=== PATIENT | male | born 1975 | race Caucasian/White ===

== ENCOUNTER → 2016-12-01 | Outpatient (REF) ==
--- NOTE | 2016-12-01 13:42 | REP ---
LEFT SHOULDER: Three views of the left shoulder are performed. There is no evidence of acute fracture, dislocation or intrinsic bone disease. IMPRESSION: Negative left shoulder series. Signed by Butch Nicholson MD 12/01/2016 02:26 P
--- NOTE | 2016-12-01 13:44 | REP ---
BILATERAL CLAVICLE SERIES: Two views of bilateral clavicles performed. Left clavicle demonstrates no fracture, dislocation or intrinsic bone disease. Acromioclavicular joint appears normal. On the right, there appears to have been resection of the distal end of the clavicle. Acromioclavicular joint is well aligned with no acute fracture or dislocation. IMPRESSION: No acute fracture or dislocation. There appears to be prior resection of the distal end of the right clavicle. Signed by Butch Nicholson MD 12/01/2016 02:26 P
== END ==
LOC: M RAD 12:12
PROVIDERS: ATTEND Family Medicine
DX: M25.512 Pain in left shoulder (principal)

== ENCOUNTER 2017-11-27 23:58 | Day surgery (SDC) | payer MEDICARE, OTHER ==
[2017-11-28] MEDS: NS 1,000 ML IV ×3 (00:44→14:20)
[2017-11-28 01:28] LABS: BASO % 0.2 % (0.0-1.0); EOS % 0.2 % (0.0-3.0); HEMOGLOBIN 14.6 g/dl (13.5-17.5); IMMATURE GRANULOCYTE % 0.4 % (0-3.0); LYMPH # 1.4 10^3/uL (1.5-4.5); LYMPH % 8.3 % (24.0-44.0); MEAN CORPUSCULAR HEMOGLOBIN 29.7 pg (27.0-33.0); MEAN CORPUSCULAR HGB CONC 35.6 g/dl (32.0-36.5); MEAN CORPUSCULAR VOLUME 83.5 fl (80.0-96.0); MONO # 0.9 10^3/uL (0.0-0.8); MONO % 5.5 % (0.0-5.0); NEUTROPHILS # 14.6 10^3/uL (1.8-7.7); NEUTROPHILS % 85.4 % (36.0-66.0); PLATELET COUNT, AUTOMATED 247 10^3/uL (150-450); RED BLOOD COUNT 4.91 10^6/uL (4.30-6.10); RED CELL DISTRIBUTION WIDTH 12.7 % (11.5-14.5); WHITE BLOOD COUNT 17.1 10^3/uL (4.0-10.0)
[2017-11-28 01:39] LABS: ALBUMIN 4.2 GM/DL (3.2-5.2); ALBUMIN/GLOBULIN RATIO 1.45 (1.00-1.93); ALKALINE PHOSPHATASE 76 U/L (45-117); ALT/SGPT 41 U/L (12-78); ANION GAP 11 MEQ/L (8-16); AST/SGOT 51 U/L (7-37); BILIRUBIN,DIRECT 0.1 MG/DL (0.0-0.2); BILIRUBIN,TOTAL 0.6 MG/DL (0.2-1.0); BLOOD UREA NITROGEN 19 MG/DL (7-18); CARBON DIOXIDE LEVEL 23 MEQ/L (21-32); CHLORIDE LEVEL 109 MEQ/L (98-107); CREATININE FOR GFR 1.68 MG/DL (0.70-1.30); GLOMERULAR FILTRATION RATE 48.4 (>60); GLUCOSE, FASTING 99 MG/DL (70-100); LIPASE 127 U/L (73-393); POTASSIUM SERUM 3.7 MEQ/L (3.5-5.1); SODIUM LEVEL 143 MEQ/L (136-145); TOTAL PROTEIN 7.1 GM/DL (6.4-8.2)
[2017-11-28] MEDS: KETOROLAC 30 MG/ML VIAL (J1885) IV (01:53)
[2017-11-28 01:54] LABS: CALCIUM OXALATE CRYSTALS RFX SMALL; KETONE, URINE AUTO RFX 2+ mg/dL (NEGATIVE); MUCUS, URINE RFX SMALL (NEGATIVE); NITRITE, URINE AUTO RFX NEGATIVE (NEGATIVE); RBC, URINE AUTO RFX 35 /HPF (0-3); SPECIFIC GRAVITY UR AUTO RFX 1.031 (1.002-1.035); SQUAM EPITHELIAL CELL UR AURFX 0 /HPF (0-6); WBC, URINE AUTO RFX 7 /HPF (0-3)
[2017-11-28 01:55] LABS: LEUKOCYTE ESTERASE UR AUTO RFX TRACE (NEGATIVE)
[2017-11-28] MEDS ORDERED: NS 1,000 ML IV (03:26)
[2017-11-28] MEDS ORDERED: ACETAMINOPHEN TAB 650MG DOSE (2X325MG) PO (03:30)
[2017-11-28] MEDS ORDERED: PERCOCET 5MG/325MG TAB PO ×2 (03:30→18:00)
[2017-11-28] MEDS ORDERED: ONDANSETRON 4MG/2ML VIAL (J2405) IV ×2 (03:30→18:00)
[2017-11-28] MEDS: CIPROFLOXACIN 400 MG in APPROPRIATE DILUENT 1 EA IV ×2 (03:30→16:45)
[2017-11-28] MEDS ORDERED: TAMSULOSIN 0.4 MG CAP PO (03:30)
[2017-11-28] MEDS: TAMSULOSIN 0.4 MG CAP PO (04:40)
[2017-11-28] MEDS: MORPHINE 4 MG/ML 1ML VIAL/SYRINGE (J2270) IV ×3 (04:41→14:20)
[2017-11-28] MEDS: PERCOCET 5MG/325MG TAB PO ×4 (06:08→18:00)
[2017-11-28] MEDS ORDERED: LIDOCAINE 2% INJ 100 MG/5 ML SDV (FOR ANES.) As Ordered (16:33)
[2017-11-28] MEDS ORDERED: PROPOFOL 200 MG/20 ML VIAL As Ordered (16:33)
[2017-11-28] MEDS ORDERED: fentaNYL 100 MCG/2 ML INJECTION (J3010) As Ordered (16:33)
[2017-11-28] MEDS ORDERED: MIDAZOLAM INJ 2 MG/2 ML VIAL (J2250) As Ordered (16:34)
[2017-11-28] MEDS: CIPROFLOXACIN/D5W 400 MG/200 ML BAG (J0744) As Ordered (16:53)
[2017-11-28] MEDS: CONRAY-60 60% 50ML VIAL (Q9961) As Ordered (17:20)
[2017-11-28] MEDS ORDERED: PERCOCET 5MG/325MG TAB As Ordered (17:50)
[2017-11-28] MEDS ORDERED: MEPERIDINE INJ 25 MG/ML VIAL (J2175) IV (18:00)
[2017-11-28] MEDS ORDERED: METOCLOPRAMIDE INJ 10MG/2ML VIAL (J2765) IV (18:00)
[2017-11-28] MEDS ORDERED: fentaNYL 100 MCG/2 ML INJECTION (J3010) IV (18:00)
[2017-11-28] MEDS: LR 1,000 ML IV (18:06)
[2017-11-29] MEDS ORDERED: TAMSULOSIN 0.4 MG CAP PO (09:00)
== END 2017-11-28 19:53 | disposition home or self-care (01) ==
LOC: M ED 23:58 → M SDC 11-28 03:22 → M MSPAV 11-28 04:10 → M SDC 11-28 19:53
DX: N20.1 Calculus of ureter (principal); Z88.0 Allergy status to penicillin; Z72.0 Tobacco use
CPT/HCPCS: 52352

== ENCOUNTER → 2017-12-05 | Outpatient (CLI) | payer MEDICARE, OTHER ==
[2017-12-05 13:26] LABS: HEMATOCRIT 46.3 % (42.0-52.0); HEMOGLOBIN 15.6 g/dl (13.5-17.5); MEAN CORPUSCULAR HEMOGLOBIN 29.5 pg (27.0-33.0); MEAN CORPUSCULAR HGB CONC 33.7 g/dl (32.0-36.5); MEAN CORPUSCULAR VOLUME 87.7 fl (80.0-96.0); PLATELET COUNT, AUTOMATED 312 10^3/uL (150-450); RED BLOOD COUNT 5.28 10^6/uL (4.30-6.10); WHITE BLOOD COUNT 10.6 10^3/uL (4.0-10.0)
[2017-12-05 14:32] LABS: ANION GAP 12 MEQ/L (8-16); BLOOD UREA NITROGEN 13 MG/DL (7-18); CALCIUM LEVEL 9.8 MG/DL (8.5-10.1); CARBON DIOXIDE LEVEL 23 MEQ/L (21-32); CHLORIDE LEVEL 109 MEQ/L (98-107); CREATININE FOR GFR 0.98 MG/DL (0.70-1.30); GLOMERULAR FILTRATION RATE > 60.0 (>60); GLUCOSE, FASTING 86 MG/DL (70-100); POTASSIUM SERUM 4.5 MEQ/L (3.5-5.1); SODIUM LEVEL 144 MEQ/L (136-145)
== END ==
LOC: M SMT 11:15
DX: Z01.818 Encounter for other preprocedural examination (principal); N20.0 Calculus of kidney
CPT/HCPCS: 80048

== ENCOUNTER 2017-12-07 09:37 | Day surgery (SDC) | payer MEDICARE, OTHER ==
[~2017-12-07 09:37] MED LIST: LIDOCAINE 2% INJ 100 MG/5 ML SDV (FOR ANES.) As Ordered; LIDOCAINE 2% JELLY 30 ML As Ordered; MIDAZOLAM INJ 2 MG/2 ML VIAL (J2250) As Ordered; ONDANSETRON 4MG/2ML VIAL (J2405) As Ordered; PROPOFOL 200 MG/20 ML VIAL As Ordered; dexameTHASONE 4 MG/ML 1ML VIAL (J1100) As Ordered; fentaNYL 100 MCG/2 ML INJECTION (J3010) As Ordered
[2017-12-07] MEDS ORDERED: LR 1,000 ML IV ×2 (10:00→15:00)
[2017-12-07] MEDS ORDERED: CIPROFLOXACIN 500 MG TAB PO (10:00)
[2017-12-07] MEDS: BUPIVACAINE HCL 0.25% 10 ML VIAL As Ordered (14:15)
[2017-12-07] MEDS: LIDOCAINE 1% MDV 20ML VIAL As Ordered (14:15)
[2017-12-07] MEDS: LIDOCAINE 2% 5ML JELLY UROJET As Ordered (14:35)
[2017-12-07] MEDS ORDERED: fentaNYL 100 MCG/2 ML INJECTION (J3010) IV (15:00)
[2017-12-07] MEDS ORDERED: ONDANSETRON 4MG/2ML VIAL (J2405) IV (15:00)
[2017-12-07] MEDS ORDERED: PERCOCET 5MG/325MG TAB PO (15:00)
[2017-12-07] MEDS ORDERED: ACETAMINOPHEN TAB 650MG DOSE (2X325MG) PO (15:00)
== END 2017-12-07 15:52 | disposition home or self-care (01) ==
LOC: M SDC 15:52
DX: Z46.6 Encounter for fitting and adjustment of urinary device (principal); Z30.2 Encounter for sterilization; M12.9 Arthropathy, unspecified; F41.9 Anxiety disorder, unspecified; F43.10 Post-traumatic stress disorder, unspecified; Z88.0 Allergy status to penicillin; Z87.442 Personal history of urinary calculi; Z87.820 Personal history of traumatic brain injury; Z72.0 Tobacco use
CPT/HCPCS: 52310